=== PATIENT | female | born 2000 | race African-American/Black ===

== ENCOUNTER 2020-01-07 12:40 | Emergency (ER) | payer MEDICAID ==
[~2020-01-07] VITALS: Ht 172.7 cm; Wt 52.0 kg
[2020-01-07 13:10] VITALS: BP 115/72
== END 2020-01-07 16:42 | disposition home or self-care (01) ==
LOC: ER 12:40
DX: J02.9 Acute pharyngitis, unspecified (principal)
CPT/HCPCS: 99282

== ENCOUNTER 2024-04-14 14:58 | Emergency (ER) | payer MEDICAID ==
[~2024-04-14] VITALS: Ht 160 cm; Wt 65.0 kg
[2024-04-14 15:01] VITALS: BP 125/69; PULSE 98; RESP 18; TEMP 98.2; O2SAT 100
== END 2024-04-14 17:46 | disposition left against medical advice (07) ==
LOC: ER 14:58
DX: F10.129 Alcohol abuse with intoxication, unspecified (principal); Y90.9 Presence of alcohol in blood, level not specified
CPT/HCPCS: 99283